=== PATIENT | male | born 1960 | race Caucasian/White ===

== ENCOUNTER 2025-03-26 05:49 | Emergency (ER) | payer SELFPAY ==
[~2025-03-26] VITALS: Ht 177.8 cm; Wt 61.2 kg
[~2025-03-26 05:49] MED LIST: FLEXERIL5 MG PO; MOTRIN800 MG PO; NKHM; VICODIN 5/500 505 MG PO
[2025-03-26] MEDS ORDERED: ceFAZolin sodium 1 GM in SYRINGE INFUSION 10 ML IV ONE (06:10)
[2025-03-26 06:37] LABS: BASO # 0.1 10*3/uL (0.0-0.1); BASO % 0.6 % (0.0-1.0); EOS # 0.2 10*3/uL (0.0-0.4); EOS % 1.3 % (1.0-4.0); MEAN CELL VOLUME 94.2 fl (80.0-94.0); MEAN CORPUSCULAR HGB 32.3 pg (27.0-31.0); MEAN PLATELET VOLUME 9.2 fl (9.6-12.3); MONO # 1.0 10*3/uL (0.1-1.0); MONO % 7.1 % (3.0-9.0); NEUT # 10.6 10*3/uL (2.3-7.9); NEUT % 75.9 % (47.0-73.0); NUCLEATED RED BLOOD CELL 0.0 % (0.0-0.0); NUCLEATED RED BLOOD CELL 0.0 10*3/uL (0.0-0.0); PLATELET COUNT AUTOMATED 342 10*3/uL (130-400); RED CELL DISTRI WIDTH 12.8 % (0-14.5)
[2025-03-26] MEDS ORDERED: Tdap Vaccine 0.5 ML SYR (Adult Vaccine) IM ONE (06:55)
[2025-03-26] MEDS ORDERED: HYDROmorphONE Hydrochloride 0.5 MG/0.5 ML SYRINGE IV ONE (06:55)
[2025-03-26] MEDS ORDERED: Ondansetron Hydrochloride 4 MG/2 ML VIAL IV ONE (06:55)
[2025-03-26] MEDS ORDERED: ceFAZolin sodium/sodium chlor 10 ML IV ONE (06:57)
== END 2025-03-26 08:19 | disposition short-term general hospital (02) ==
LOC: ED 05:49
PROVIDERS: Internal Medicine
DX: S01.01XA Laceration without foreign body of scalp, initial encounter (principal); S81.011A Laceration without foreign body, right knee, initial encounter; S41.011A Laceration without foreign body of right shoulder, initial encounter; S06.9X9A Unspecified intracranial injury with loss of consciousness of unspecified duration, initial encounter; M25.511 Pain in right shoulder; W11.XXXA Fall on and from ladder, initial encounter; Y93.89 Activity, other specified; Y92.89 Other specified places as the place of occurrence of the external cause; Y99.8 Other external cause status